=== PATIENT | female | born 1965 | race Caucasian/White ===

== ENCOUNTER → 2021-12-02 12:03 | Outpatient (CLI) | payer OTHER, SELFPAY | PROVIDERS: PCP Registered Nurse; Referring Provider Registered Nurse; Visit Provider Registered Nurse | DX: Z13.820 Encounter for screening for osteoporosis (principal); M81.0 Age-related osteoporosis without current pathological fracture | CPT/HCPCS: 77080 ==

== ENCOUNTER → 2024-02-05 09:47 | Outpatient (CLI) | payer OTHER, SELFPAY ==
--- NOTE | 2024-02-05 09:49 | DI.RAD.S_ITS ---
PROCEDURE: XR DEXA AXIAL SKELETON INDICATIONS: MENOPAUSE / OSTEOPOROSIS SCREENING COMPARISON: [facility], [place], XR DEXA AXIAL SKELETON, 12/02/2021, 12:39. FINDINGS: Lumbar Spine: Bone mineral density 0.910 g/cm2, T score -1.5. Left Hip: Bone mineral density 0.726 g/cm2, T score -1.8. Left Femoral Neck: Bone mineral density 0.596 g/cm2, T score -2.3. Right Hip: Bone mineral density 0.693 g/cm2, T score -2.0. Right Femoral Neck: Bone mineral density 0.568 g/cm2, T score, -2.5. Fracture Risk Calculation (when applicable): 10-year fracture risk of a major osteoporotic fracture and of a hip fracture not calculated given presence of osteoporosis. (T score greater or equal to -1.0 to: NORMAL) (T score from -1.1 to -2.4: OSTEOPENIA) (T score less than or equal to -2.5: OSTEOPOROSIS) IMPRESSION: Osteoporosis. Follow-up guidelines as follows: Osteoporosis: Consider a repeat DEXA and Vertebral Fracture Assessment (VFA) exam in 2 years or sooner if medically necessary, to reassess this patient's status. Osteopenia: Consider a repeat DEXA in 2-3 years to reassess this patient's status, or if there is a new clinical indication. Normal: Consider a repeat DEXA in 5 years or sooner, or if there is a new clinical indication. All treatment decisions require clinical judgment and consideration of individual patient factors, including patient preferences, comorbidities, previous drug use, risk factors not captured in the FRAX model (e.g., frailty, falls, vitamin D deficiency, increased bone turnover, interval significant decline in bone density ) and possible under- or over-estimation of fracture risk by FRAX. In addition, the NOF Guide recommends that FDA-approved medical therapies be considered in postmenopausal women and men age >= 50 years with a: * Hip or vertebral (clinical or morphometric) fracture * T-score of <=-2.5 at the spine or hip * Ten-year fracture probability by FRAX of >= 3% for hip fracture or >=20% for major osteoporotic fracture. People with diagnosed cases of osteoporosis or at high risk for fracture should have regular bone mineral density tests. For patients eligible for Medicare, routine testing is allowed once every 2 years. The testing frequency can be increased to one year for patients who have rapidly progressing disease, those who are receiving or discontinuing medical therapy to restore bone mass, or have additional risk factors. Dictated by: Te Urbina M.D. on 02/05/2024 at 10:30 Approved by: Te Urbina M.D. on 02/05/2024 at 10:33
== END ==
PROVIDERS: PCP Registered Nurse; Referring Provider Registered Nurse; Visit Provider Registered Nurse
DX: N95.1 Menopausal and female climacteric states (principal); M81.0 Age-related osteoporosis without current pathological fracture
CPT/HCPCS: 77080